=== PATIENT | female | born 2000 | race African-American/Black ===

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

== ENCOUNTER 2020-03-09 05:02 | Emergency (ER) | payer SELFPAY ==
[~2020-03-09] VITALS: Ht 162.6 cm; Wt 133.3 kg
[~2020-03-09 05:02] MED LIST changes: +CEPH500T PO
[2020-03-09] MEDS ORDERED: AZIT250T PO (05:24)
--- NOTE | 2020-03-09 05:24 | PHYS DOC ---
Past Medical History Past Medical History: Asthma Additional Past Medical Histor: CHRONIC BACK PAIN Past Surgical History: No Surgical History Smoking Status: Never Smoker Alcohol Use: None Drug Use: None General Adult EDM: Chief Complaint: MULTIPLE COMPLAINTS HPI: HPI: Patient is a 19 year old female presents with the chief complaint of left nasal pain, headache, and sore throat. Nasal pain and head x 2 weeks after getting covid test for work. Patient complains of 2 days of sore throat. Denies fever chills cough or shortness of breath. Review of Systems: Review of Systems: Constitutional: Denies fever or chills. [] Eyes: Denies change in visual acuity. [] HENT: Denies nasal congestion positive sore throat. [positive nasal pain] Respiratory: Denies cough or shortness of breath. [] Cardiovascular: Denies chest pain or edema. [] GI: Denies abdominal pain, nausea, vomiting, bloody stools or diarrhea. [] : Denies dysuria. [] Musculoskeletal: Denies back pain or joint pain. [] Integument: Denies rash. [] Neurologic: Denies headache, focal weakness or sensory changes. [] Endocrine: Denies polyuria or polydipsia. [] Lymphatic: Denies swollen glands. [] Psychiatric: Denies depression or anxiety. [] Heart Score: Risk Factors: Risk Factors: DM, Current or recent (<one month) smoker, HTN, HLP, family history of CAD, obesity. Risk Scores: Score 0 - 3: 2.5% MACE over next 6 weeks - Discharge Home Score 4 - 6: 20.3% MACE over next 6 weeks - Admit for Clinical Observation Score 7 - 10: 72.7% MACE over next 6 weeks - Early Invasive Strategies Allergies: Allergies: Allergies Coded Allergies Type Severity Reaction Last Updated Verified No Known Drug Allergies 08/14/13 No Physical Exam: PE: Constitutional: Well developed, well nourished, no acute distress, non-toxic appearance. [] HENT: Normocephalic, atraumatic, bilateral external ears normal, oropharynx moist, no oral exudates, nose normal. [pharyngeal erythema] Eyes: PERRLA, EOMI, conjunctiva normal, no discharge. [] Neck: Normal range of motion, no tenderness, supple, no stridor. [] Cardiovascular:Heart rate regular rhythm, no murmur [] Lungs & Thorax: Bilateral breath sounds clear to auscultation [] Abdomen: Bowel sounds normal, soft, no tenderness, no masses, no pulsatile masses. [] Skin: Warm, dry, no erythema, no rash. [] Back: No tenderness, no CVA tenderness. [] Extremities: No tenderness, no cyanosis, no clubbing, ROM intact, no edema. [] Neurologic: Alert and oriented X 3, normal motor function, normal sensory f unction, no focal deficits noted. [] Psychologic: Affect normal, judgement normal, mood normal. [] EKG: EKG: [] Radiology/Procedures: Radiology/Procedures: [] Course & Med Decision Making: Course & Med Decision Making Pertinent Labs and Imaging studies reviewed. (See chart for details) [] Dragon Disclaimer: Dragon Disclaimer: This electronic medical record was generated, in whole or in part, using a voice recognition dictation system. Departure Departure Impression: Primary Impression: Pharyngitis Additional Impression: Headache Disposition: 01 HOME, SELF-CARE Condition: STABLE Referrals: JENNY KELLY DO (PCP) Patient Instructions: Viral and Bacterial Pharyngitis Scripts Azithromycin (ZITHROMAX) 250 Mg Tablet 1 PKG PO UD, #6 TAB Prov: JERONIMO HULL DO 03/09/20 Justicifation of Admission Dx: Justifications for Admission: Justification of Admission Dx: N/A JERONIMO HULL DO Mar 09, 2020 05:24
[2020-03-09 06:00] VITALS: BP 156/98
== END 2020-03-09 06:10 | disposition home or self-care (01) ==
LOC: ER 05:02
DX: J02.9 Acute pharyngitis, unspecified (principal); R51 Headache; L53.9 Erythematous condition, unspecified; J45.909 Unspecified asthma, uncomplicated; G89.29 Other chronic pain
CPT/HCPCS: 99283

== ENCOUNTER 2020-06-28 12:50 | Emergency (ER) | payer SELFPAY ==
[~2020-06-28] VITALS: Ht 160 cm; Wt 130.4 kg
[~2020-06-28 12:50] MED LIST changes: +AZIT250T PO
[2020-06-28 14:47] LABS: BILIRUBIN,URINE NEGATIVE (NEG); CLARITY,URINE CLEAR; COLOR,URINE YELLOW; NITRITE,URINE NEGATIVE (NEG); PROTEIN,URINE NEGATIVE (NEG-TRACE); UROBILINOGEN,URINE 0.2 mg/dL (0.2 mg/dL)
[2020-06-28] MEDS ORDERED: ONDANSETRON ODT 4 MG TAB.RAPDIS. PO ONE (15:00)
[2020-06-28 15:11] LABS: BASO % 0 % (0-3); EOS % 0 % (0-3); HEMATOCRIT 38.6 % (36.0-47.0); LYMPH # 0.9 x10^3/uL (1.0-4.8); LYMPH % 21 % (24-48); MEAN CORPUSCULAR HEMOGLOBIN 27 pg (25-35); MEAN CORPUSCULAR HGB CONC 34 g/dL (31-37); MEAN CORPUSCULAR VOLUME 81 fL (79-100); MONO # 0.3 x10^3/uL (0.0-1.1); MONO % 7 % (0-9); NEUT % 71 % (31-73); PLATELET COUNT 238 x10^3/uL (140-400); RED BLOOD COUNT 4.77 x10^6/uL (3.50-5.40); RED CELL DISTRIBUTION WIDTH 14.1 % (11.5-14.5); WHITE BLOOD COUNT 4.2 x10^3/uL (4.0-11.0)
[2020-06-28 15:20] LABS: CALCIUM 8.8 mg/dL (8.5-10.1); CREATININE 0.7 mg/dL (0.6-1.0); GFR 130.4; POTASSIUM 3.5 mmol/L (3.5-5.1)
[2020-06-28 15:26] LABS: ALBUMIN 3.4 g/dL (3.4-5.0); ALBUMIN/GLOBULIN RATIO 0.8 (1.0-1.7); TOTAL BILIRUBIN 0.5 mg/dL (0.2-1.0); TOTAL PROTEIN 7.6 g/dL (6.4-8.2)
[2020-06-28 15:27] LABS: BACTERIA,URINE 0 /HPF (0-FEW); WBC,URINE RARE /HPF (0-4)
[2020-06-28] MEDS ORDERED: ONDANSETRON PF 4 MG/2 ML VIAL. IVP ONE (15:30)
--- NOTE | 2020-06-28 16:46 | RAD ---
Clinical History: Abdominal pain and vomiting and elevated LFTs Technique: Sonographic examination of the right upper quadrant of the abdomen was performed and multiple static images were obtained. Comparison: none Findings: The study is significantly limited due to large body habitus. Liver: The majority of the liver is visualized and appears homogeneous. There is increased echogenicity attenuation of sound which further limits ultrasound sensitivity for possible solid liver lesion. Common bile duct: Appears normal and measures 3 mm in diameter. Gallbladder: appears normal. Pancreas: is not visualized due to overlying bowel gas. Right kidney: Not well seen. The right kidney measures 10 cm in length. Main Portal Vein: Normal hepatopedal flow Aorta: normal IVC: normal Impression: Limited study. Fatty infiltration of the liver. No evidence of acute gallbladder pathology. Electronically signed by: Jackson Farooq III, MD (06/28/2020 4:43 PM) [id number]
[2020-06-28] MEDS ORDERED: ONDA4TAB7 PO (17:05)
--- NOTE | 2020-06-28 17:05 | ED.ADGEN ---
Past Medical History Past Medical History: No Pertinent History, Asthma Additional Past Medical Histor: CHRONIC BACK PAIN Past Surgical History: No Surgical History Smoking Status: Never Smoker Alcohol Use: None Drug Use: None General Adult EDM: Chief Complaint: NAUSEA/VOMITING/DIARRHA HPI: HPI: Patient is a 19-year-old female who presents to the emergency room after having 2 episodes of bilious vomiting this morning. She states that she has continuous nausea but only has abdominal pain right before she vomits. She denies any diarrhea or constipation. She has not had any sick contacts. She also would like to be treated for trichomonas as her partner recently tested positive for trichomonas and she has not yet been treated. She denies any vaginal discharge or dysuria. She does not have any urinary symptoms. She denies any chance of being . Review of Systems: Review of Systems: General: Denies fever, chills, sweats, fatigue Eyes: Denies drainage, blurred vision, eye redness HENT: Denies rhinorrhea, sore throat, earache Respiratory: Denies cough, shortness of breath, wheezing Cardiac: Denies edema, palpitations, chest pain GI: Reports nausea, vomiting, abdominal pain MSK: Denies neck pain, back pain Skin: Denies rash, jaundice Neuro: Denies headache, dizziness Psychiatric: Denies SI/HI Current Medications: Current Medications Medications (Trade) Dose Ordered Sig/Maira Start Time Stop Time Status Last Admin Dose Admin Metronidazole (Flagyl) 2,000 mg 1X ONCE 06/28/20 17:45 06/28/20 17:46 DC 06/28/20 18:01 2,000 MG Ondansetron HCl (Zofran Odt) 8 mg 1X ONCE 06/28/20 15:00 06/28/20 15:01 DC Ondansetron HCl (Zofran) 8 mg 1X ONCE 06/28/20 15:30 06/28/20 15:31 DC 06/28/20 15:20 8 MG Allergies: Allergies: Allergies Coded Allergies Type Severity Reaction Last Updated Verified No Known Drug Allergies 08/14/13 No Physical Exam: PE: General: Awake, alert, NAD. Well Nourished, well hydrated. Cooperative HEENT: Atraumatic, EOMI, PERRL, airway patent, moist oral mucosa Neck: Supple, trachea midline Respiratory: CTA bilaterally, normal effort, no wheezing/crackles CV: RRR, no murmur, cap refill <2 GI: Soft, nondistended, nontender, no masses MSK: No obvious deformities Skin: Warm, dry, intact Neuro: A&O x3, speech NL, sensory and motor grossly intact, no focal deficits Psych: Normal affect, normal mood, not suicidal or homicidal Current Patient Data: Labs: Laboratory Tests Test 06/28/20 13:45 06/28/20 14:10 White Blood Count 4.2 x10^3/uL (4.0-11.0) Red Blood Count 4.77 x10^6/uL (3.50-5.40) Hemoglobin 13.0 g/dL (12.0-15.5) Hematocrit 38.6 % (36.0-47.0) Mean Corpuscular Volume 81 fL (79-100) Mean Corpuscular Hemoglobin 27 pg (25-35) Mean Corpuscular Hemoglobin Concent 34 g/dL (31-37) Red Cell Distribution Width 14.1 % (11.5-14.5) Platelet Count 238 x10^3/uL (140-400) Neutrophils (%) (Auto) 71 % (31-73) Lymphocytes (%) (Auto) 21 % (24-48) L Monocytes (%) (Auto) 7 % (0-9) Eosinophils (%) (Auto) 0 % (0-3) Basophils (%) (Auto) 0 % (0-3) Neutrophils # (Auto) 3.0 x10^3/uL (1.8-7.7) Lymphocytes # (Auto) 0.9 x10^3/uL (1.0-4.8) L Monocytes # (Auto) 0.3 x10^3/uL (0.0-1.1) Eosinophils # (Auto) 0.0 x10^3/uL (0.0-0.7) Basophils # (Auto) 0.0 x10^3/uL (0.0-0.2) Sodium Level 141 mmol/L (136-145) Potassium Level 3.5 mmol/L (3.5-5.1) Chloride Level 105 mmol/L (98-107) Carbon Dioxide Level 26 mmol/L (21-32) Anion Gap 10 (6-14) Blood Urea Nitrogen 10 mg/dL (7-20) Creatinine 0.7 mg/dL (0.6-1.0) Estimated GFR (Cockcroft-Gault) 130.4 BUN/Creatinine Ratio 14 (6-20) Glucose Level 95 mg/dL (70-99) Calcium Level 8.8 mg/dL (8.5-10.1) Total Bilirubin 0.5 mg/dL (0.2-1.0) Aspartate Amino Transferase (AST) 53 U/L (15-37) H Alanine Aminotransferase (ALT) 110 U/L (14-59) H Alkaline Phosphatase 82 U/L (46-116) Total Protein 7.6 g/dL (6.4-8.2) Albumin 3.4 g/dL (3.4-5.0) Albumin/Globulin Ratio 0.8 (1.0-1.7) L Urine Collection Type Void Urine Color Yellow Urine Clarity Clear Urine pH 5.0 (<5.0-8.0) Urine Specific [place] >=1.030 (1.000-1.030) Urine Protein Negative mg/dL (NEG-TRACE) Urine Glucose (UA) Negative mg/dL (NEG) Urine Ketones (Stick) Negative mg/dL (NEG) Urine Blood Large (NEG) Urine Nitrite Negative (NEG) Urine Bilirubin Negative (NEG) Urine Urobilinogen Dipstick 0.2 mg/dL (0.2 mg/dL) Urine Leukocyte Esterase Negative (NEG) Urine RBC 1-2 /HPF (0-2) Urine WBC Rare /HPF (0-4) Urine Squamous Epithelial Cells Many /LPF Urine Bacteria 0 /HPF (0-FEW) Urine Mucus Slight /LPF Laboratory Tests 06/28/20 13:45 Laboratory Tests 06/28/20 13:45 Vital Signs: Vital Signs Date Time Temp Pulse Resp B/P (MAP) Pulse Ox O2 Delivery O2 Flow Rate FiO2 06/28/20 17:50 69 148/85 (106) 95 Room Air 06/28/20 13:25 97.5 18 97.5 EKG: EKG: [] Heart Score: Risk Factors: Risk Factors: DM, Current or recent (<one month) smoker, HTN, HLP, family history of CAD, obesity. Risk Scores: Score 0 - 3: 2.5% MACE over next 6 weeks - Discharge Home Score 4 - 6: 20.3% MACE over next 6 weeks - Admit for Clinical Observation Score 7 - 10: 72.7% MACE over next 6 weeks - Early Invasive Strategies Radiology/Procedures: Radiology/Procedures: [] Course & Med Decision Making: Course & Med Decision Making Pertinent Labs and Imaging studies reviewed. (See chart for details) Patient is a 19-year-old female who presents to the emergency room complaining of bilious vomiting. Abdominal labs show a mild elevation in LFTs. Ultrasound was done to rule out gallbladder pathology was negative. Patient was treated empirically for trichomonas. She declined a pelvic exam patient's test results and vitals while in the ED were fully reviewed and discussed with the patient. Patient is stable and at this time does not need admission to the hospital. We have discussed strict return precautions and the importance of following up with their Primary Care Physician. Patient stated understanding and was given an opportunity to ask any questions. Patient is in agreement with plan. Dragon Disclaimer: Dragon Disclaimer: This electronic medical record was generated, in whole or in part, using a voice recognition dictation system. Departure Departure Impression: Primary Impression: Trichomonal infection Additional Impression: Vomiting Disposition: 01 DC HOME SELF CARE/HOMELESS Condition: STABLE Referrals: NO PCP (PCP) Patient Instructions: Nausea and Vomiting, Trichomoniasis-Brief Scripts Ondansetron Hcl (ZOFRAN) 4 Mg Tablet 1 TAB PO PRN Q6-8HRS for nausea, #12 TAB Prov: RYNE MEDINA MD 06/28/20 Problem Qualifiers RYNE MEDINA MD Jun 28, 2020 17:05
[2020-06-28] MEDS ORDERED: metroNIDAZOLE 500 MG TABLET PO ONE (17:45)
[2020-06-28 17:50] VITALS: BP 148/85
== END 2020-06-28 18:05 | disposition home or self-care (01) ==
LOC: ER 12:50
DX: A59.03 Trichomonal cystitis and urethritis (principal); R11.2 Nausea with vomiting, unspecified; R10.9 Unspecified abdominal pain; J45.909 Unspecified asthma, uncomplicated; G89.29 Other chronic pain
CPT/HCPCS: 36415; 76705; 80053; 81001; 85025; 87491; 87591; 96374; 99285; J2405

== ENCOUNTER 2021-01-22 23:33 | Emergency (ER) | payer SELFPAY ==
[~2021-01-22] VITALS: Ht 162.6 cm; Wt 79.5 kg
[~2021-01-22 23:33] MED LIST changes: +ONDA4TAB7 PO
[2021-01-22 23:40] VITALS: BP 195/103
[2021-01-23] MEDS ORDERED: TRIA15OI9 TP
[2021-01-23] MEDS ORDERED: IBUP-1060 PO
--- NOTE | 2021-01-23 00:01 | ED.ADGEN ---
Past Medical History Past Medical History: No Pertinent History, Asthma Additional Past Medical Histor: CHRONIC BACK PAIN Past Surgical History: No Surgical History Smoking Status: Never Smoker Alcohol Use: None Drug Use: None General Adult EDM: Chief Complaint: MULTIPLE COMPLAINTS HPI: HPI: Patient is a 20 year old female coming in for 1 week of bilateral lumbar back pain. 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 No urinary complaints, fevers, weight loss, night sweats, history of IV drug use. Patient also complaining of an itchy rash to her face mostly on her forehead and some on her cheeks. Says it started after she had changed facial soaps. Review of Systems: Review of Systems: All other systems within normal limits except for as noted in the HPI Allergies: Allergies: Allergies Coded Allergies Type Severity Reaction Last Updated Verified No Known Drug Allergies 08/14/13 No Physical Exam: PE: Constitutional: Well developed, well nourished, no acute distress, non-toxic appearance. [] HENT: Normocephalic, atraumatic, bilateral external ears normal, nose normal. [] Eyes: PERRLA, conjunctiva normal, no discharge. [] Neck: No rigidity, supple, no stridor. [] Cardiovascular: Regular rate and rhythm, brisk cap refill [] Lungs & Thorax: Non labored symmetric respirations, no tachypnea or respiratory distress [] Abdomen: Soft, nondistended. Skin: Warm, dry, no erythema, papular rash to forehead and upper cheeks bilaterally [] Back: Unremarkable, to stop or deformities, tenderness bilateral lumbar spine with muscle tightness Extremities: No deformities, range of motion grossly intact, no lower extremity edema [] Neurologic: Alert and oriented X 3, no focal deficits noted. [] Psychologic: Affect normal, judgement normal, mood normal. [] Current Patient Data: Labs: Laboratory Tests Test 01/22/21 23:48 POC Urine HCG, Qualitative Hcg negative (Negative) EKG: EKG: [] Heart Score: C/O Chest Pain: No Risk Factors: Risk Factors: DM, Current or recent (<one month) smoker, HTN, HLP, family h istory of CAD, obesity. Risk Scores: Score 0 - 3: 2.5% MACE over next 6 weeks - Discharge Home Score 4 - 6: 20.3% MACE over next 6 weeks - Admit for Clinical Observation Score 7 - 10: 72.7% MACE over next 6 weeks - Early Invasive Strategies Radiology/Procedures: Radiology/Procedures: [] Course & Med Decision Making: Course & Med Decision Making Pertinent Labs and Imaging studies reviewed. (See chart for details) [] Dragon Disclaimer: Dragon Disclaimer: This electronic medical record was generated, in whole or in part, using a voice recognition dictation system. Departure Departure Impression: Primary Impression: Contact dermatitis Additional Impression: Low back pain Disposition: HOME / SELF CARE / HOMELESS Condition: STABLE Referrals: NO PCP (PCP) Patient Instructions: Back Exercises Scripts Triamcinolone Acetonide (TRIAMCINOLONE ACETONIDE 0.5% OINT) 15 Gm Oint...g. 1 BRITTANY TP BID for steroid for 5 Days, #60 GM Prov: RACHELE SUTTON MD 01/23/21 Ibuprofen (IBUPROFEN) 800 Mg Tablet 800 MG PO PRN Q8HRS PRN for INFLAMMATION for 10 Days, #30 TAB Prov: RACHELE SUTTON MD 01/23/21 Problem Qualifiers RACHELE SUTTON MD January 23, 2021 00:01
== END 2021-01-23 00:09 | disposition home or self-care (01) ==
LOC: ER 23:33
DX: M54.5 Low back pain (principal); L25.9 Unspecified contact dermatitis, unspecified cause; J45.909 Unspecified asthma, uncomplicated
CPT/HCPCS: 81025; 99283

== ENCOUNTER 2021-07-05 10:39 | Emergency (ER) | payer SELFPAY ==
[~2021-07-05] VITALS: Ht 162.6 cm; Wt 130.0 kg
[~2021-07-05 10:39] MED LIST changes: +IBUP-1060 PO; +TRIA15OI9 TP
[2021-07-05] MEDS ORDERED: IV NORMAL SALINE 1000ML BAG 1,000 ML IV ONE (10:45)
[2021-07-05] MEDS ORDERED: ONDANSETRON PF 4 MG/2 ML VIAL. IVP ONE (10:45)
[2021-07-05 10:48] VITALS: BP 135/78
--- NOTE | 2021-07-05 10:52 | PHYS DOC ---
Past Medical History Past Medical History: Asthma, Hypertension Additional Past Medical Histor: CHRONIC BACK PAIN Past Surgical History: No Surgical History Smoking Status: Never Smoker Alcohol Use: Occasionally Drug Use: None General Adult EDM: Chief Complaint: NAUSEA/VOMITING/DIARRHEA HPI: HPI: Patient is a 20 year old female who presents with nausea and vomiting. Started this morning after a night of heavy drinking. Unsure what she was drinking, but reports mixing multiple types of drinks. Unsure the total amount. States this was her first time drinking alcohol. Woke up with a headache and has been vomiting since. Now has some slight chest discomfort. Denies significant abdominal pain, slight cramping discomfort with vomiting. Vomit just now with a slight pink froth, but no outright blood or coffee grounds. Review of Systems: Review of Systems: Constitutional: Denies fever or chills. [] Eyes: Denies change in visual acuity. [] HENT: Denies nasal congestion or sore throat. [] Respiratory: Denies cough or shortness of breath. [] Cardiovascular: Reports chest pain. Denies edema. [] GI: Reports nausea and vomiting. Denies bloody stools or diarrhea. [] : Denies dysuria. [] Musculoskeletal: Denies back pain or joint pain. [] Integument: Denies rash. [] Neurologic: Denies headache, focal weakness or sensory changes. [] Endocrine: Denies polyuria or polydipsia. [] Lymphatic: Denies swollen glands. [] Psychiatric: Denies depression or anxiety. [] Heart Score: C/O Chest Pain: N/A Allergies: Allergies: Allergies Coded Allergies Type Severity Reaction Last Updated Verified No Known Drug Allergies 08/14/13 No Physical Exam: PE: Constitutional: Retching frequently, appears uncomfortable. HENT: Normocephalic, atraumatic Eyes: conjunctiva normal, no discharge. [] Neck: Normal range of motion, no tenderness, supple, no stridor. [] Cardiovascular:Heart rate regular rhythm, no murmur [] Lungs & Thorax: Bilateral breath sounds clear to auscultation [] Abdomen: soft, nondistended, nontender. Skin: Warm, dry, no erythema, no rash. [] Back: No tenderness, no CVA tenderness. [] Extremities: No tenderness, no cyanosis, no clubbing, ROM intact, no edema. [] Neurologic: Alert and oriented X 3, normal motor function, normal sensory function, no focal deficits noted. [] Psychologic: Affect normal, judgement normal, mood normal. [] EKG: EKG: [] Radiology/Procedures: Radiology/Procedures: [] Impression: [facility] [address] [place] [address] IMAGING REPORT Signed PATIENT: AMOR MONTGOMERY ACCOUNT: [id number] : 2000 LOCATION: ER AGE: 20 SEX: F EXAM STATUS: REG ER ORD. PHYSICIAN: ANDRY MARTINEZ MD REASON: vomiting, chest discomfort PROCEDURE: CHEST AP ONLY AP chest. HISTORY: Vomiting, chest discomfort AP view was taken of the chest. Patient's taken a poor inspiration. An acute infiltrate is not identified. There is no pleural effusion. Heart is within normal limits in size. IMPRESSION: 1. No acute infiltrates. Electronically signed by: Michel Underwood MD (07/05/2021 11:15 AM) [facility] DICTATED and SIGNED BY: MICHEL UNDERWOOD MD DATE: 07/05/21 [id number] 0 Course & Med Decision Making: Course & Med Decision Making Pertinent Labs and Imaging studies reviewed. (See chart for details) Patient is 20-year-old female who presents with nausea and vomiting after a night of heavy drinking. She is complaining of some chest discomfort, and has pink/frothy vomitus, but no eric blood or coffee grounds. Given the chest pain will evaluate with chest x-ray to screen for pneumomediastinum. I suspect esophagitis/potential Pratibha-Thrasher tears as the cause of her pink-tinged vomitus. No significant blood loss and recent onset of vomiting do not feel labs would be helpful. Pain seems related to vomiting, do not feel PE or ischemic work up is indicated. We will treat with IV fluids and antiemetics. 1050 Feeling much improved. Chest pain feeling better. Chest x-ray without acute process. No hematemesis. Feel she is safe for discharge with Zofran prescription. [address] Disclaimer: González Disclaimer: This electronic medical record was generated, in whole or in part, using a voice recognition dictation system. Departure Departure Impression: Primary Impression: Nausea and vomiting Additional Impression: Hangover effect Referrals: NO PCP (PCP) Additional Instructions: I believe your nausea and vomiting is due to your alcohol intake last night. Please try to keep well-hydrated. You can use Zofran every 6 hours as needed for nausea/vomiting. If you develop worsening pain, or other new/concerning symptoms please return to the emergency department for reevaluation. Scripts Ondansetron Hcl (ZOFRAN) 4 Mg Tablet 1 TAB PO PRN Q6-8HRS PRN for NAUSEA/VOMITING, #20 TAB 0 Refills Prov: ANDRY MARTINEZ MD 07/05/21 ANDRY MARTINEZ MD Jul 05, 2021 10:52
--- NOTE | 2021-07-05 11:17 | RAD ---
AP chest. HISTORY: Vomiting, chest discomfort AP view was taken of the chest. Patient's taken a poor inspiration. An acute infiltrate is not identi fied. There is no pleural effusion. Heart is within normal limits in size. IMPRESSION: 1. No acute infiltrates. Electronically signed by: Michel Underwood MD (07/05/2021 11:15 AM) [facility]
[2021-07-05] MEDS ORDERED: ONDA4TAB7 PO (12:19)
== END 2021-07-05 12:27 | disposition home or self-care (01) ==
LOC: ER 10:39
DX: R11.2 Nausea with vomiting, unspecified (principal); R51.9 Headache, unspecified; G89.29 Other chronic pain; I10 Essential (primary) hypertension; J45.909 Unspecified asthma, uncomplicated; F10.129 Alcohol abuse with intoxication, unspecified; Y90.9 Presence of alcohol in blood, level not specified
CPT/HCPCS: 71045; 96361; 96374; 99283; J2405; J7030